=== PATIENT | female | born 2000 | race Caucasian/White ===

== ENCOUNTER 2020-04-29 11:43 | Emergency (ER) | payer MEDICAID ==
[~2020-04-29] VITALS: Ht 162.6 cm; Wt 85.7 kg
[2020-04-29 11:48] VITALS: BP_SYST 142
[2020-04-29 11:55] VITALS: BP_SYST 142
== END 2020-04-29 11:55 ==
LOC: SED 11:43
DX: Z02.89 Encounter for other administrative examinations (principal)
CPT/HCPCS: 99283

== ENCOUNTER 2021-09-11 18:18 | Emergency (ER) | payer MEDICAID ==
[~2021-09-11] VITALS: Ht 160 cm; Wt 83.9 kg
--- NOTE | 2021-09-11 18:40 | NUR ---
Pt not seen in waiting room or outside when name called. Attempted to triage.
[2021-09-11 18:51] VITALS: BP_SYST 111
--- NOTE | 2021-09-11 18:59 | NUR ---
Pt triaged. Ambulatory to radiology.
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
--- NOTE | 2021-09-11 19:26 | NUR ---
Report given to Mahamed KING to assume care of patient
[2021-09-11] MEDS ORDERED: NAPR-1172 PO (21:14)
--- NOTE | 2021-09-11 21:23 | NUR ---
Patient given written and verbal discharge instructions and verbalizes understanding. ER MD discussed with patient the results and treatment provided. Patient in stable condition. ID arm band removed. Rx of given. Patient educated on pain management and to follow up with PMD. Pain Scale . Opportunity for questions provided and answered. Medication side effect fact sheet provided. Pt spoke with LUZ MARIA in person.
[2021-09-11 21:25] VITALS: BP_SYST 111
== END 2021-09-11 21:25 | disposition home or self-care (01) ==
LOC: SED 18:18
DX: S00.12XA Contusion of left eyelid and periocular area, initial encounter (principal); R51.9 Headache, unspecified; Y04.0XXA Assault by unarmed brawl or fight, initial encounter; Y93.89 Activity, other specified; Y92.89 Other specified places as the place of occurrence of the external cause; Y99.8 Other external cause status
CPT/HCPCS: 70486-TC; 76376; 99284

== ENCOUNTER 2022-11-29 16:45 | Emergency (ER) | payer MEDICAID ==
[~2022-11-29] VITALS: Ht 162.6 cm; Wt 88.0 kg
[~2022-11-29 16:45] MED LIST: NAPR-1172 PO
[2022-11-29 17:19] VITALS: BP_SYST 130; PULSE 97; RESP 18; TEMP 97.2; O2SAT 100
[2022-11-29] MEDS ORDERED: ONDANSETRON HCL 4 MG/2 ML VIAL IVP ONE (17:30)
[2022-11-29] MEDS ORDERED: NACL 0.9% 1,000 ML IV ONE (17:30)
[2022-11-29 17:39] LABS: BASOPHILS # (AUTO) 0.1 K/uL (0.0-0.2); BASOPHILS % (AUTO) 0.6 % (0.0-2.0); EOSINOPHILS % (AUTO) 0.3 % (0.0-4.0); HEMATOCRIT 48.1 % (36-48); HEMOGLOBIN 15.6 g/dL (12.0-16.0); LYMPHOCYTES # (AUTO) 2.3 K/uL (1.0-5.5); LYMPHOCYTES % (AUTO) 20.4 % (20.5-51.5); MEAN CORPUSCULAR HEMOGLOBIN 29 pg (27-31); MEAN CORPUSCULAR HGB CONC 32 % (32-36); MEAN CORPUSCULAR VOLUME 90 fL (79.0-98.0); MONOCYTES # (AUTO) 0.8 K/uL (0.0-1.0); MONOCYTES % (AUTO) 6.9 % (1.7-9.3); NEUTROPHILS # (AUTO) 8.2 K/uL (1.8-7.7); NEUTROPHILS % (AUTO) 71.8 % (40.0-70.0); PLATELET COUNT (AUTO) 435 K/uL (130-430); RED BLOOD CELL COUNT(AUTO) 5.37 MIL/uL (4.2-6.2); RED CELL DISTRIBUTION WIDTH 13.7 % (9.0-15.0); WHITE BLOOD COUNT (AUTO) 11.4 K/uL (4.8-10.8)
[2022-11-29 17:56] LABS: CALCIUM 9.5 mg/dL (8.4-11.0); CREATININE 0.84 mg/dL (0.55-1.30); POTASSIUM 4.3 mmol/L (3.5-5.1)
[2022-11-29 18:01] LABS: ALBUMIN 4.3 g/dL (3.4-4.8); TOTAL BILIRUBIN 0.3 mg/dL (0.0-1.0); TOTAL PROTEIN, SERUM 8.3 g/dL (6.4-8.3)
[2022-11-29 19:21] VITALS: BP_SYST 128; PULSE 90; RESP 18; TEMP 97.4; O2SAT 99
== END 2022-11-29 19:21 | disposition home or self-care (01) ==
LOC: SED 16:45
DX: R10.13 Epigastric pain (principal); R11.2 Nausea with vomiting, unspecified; Z79.899 Other long term (current) drug therapy
CPT/HCPCS: 36415; 76700-TC; 80053; 83690; 85025; 99284